=== PATIENT | female | born 1960 | race Caucasian/White ===

== ENCOUNTER 2018-05-07 15:06 | Emergency (ER) | payer BC ==
[2018-05-07 15:36] VITALS: BP 108/63
--- NOTE | 2018-05-07 16:00 | UC ---
Throat Pain/Nasal Gulshan HPI - HPI Summary HPI Summary: 2-3 weeks of intermittent sore throat and pain with swallowing. No documented fever. Feels tired. Has mild cough. Concerned about strep because she thought she saw a white spot on her right tonsil. - History of Current Complaint Chief Complaint: UCGeneralIllness Stated Complaint: ST Time Seen by Provider: 05/07/18 15:33 Hx Obtained From: Patient Onset/Duration: Gradual Onset, Lasting Weeks, Still Present Severity: Moderate Pain Intensity: 7 Pain Scale Used: 0-10 Numeric Cough: Nonproductive Associated Signs & Symptoms: Negative: Fever - Allergies/Home Medications Allergies/Adverse Reactions: Allergies Allergy/AdvReac Type Severity Reaction Status Date / Time No Known Allergies Allergy Verified 05/07/18 15:37 PMH/Surg Hx/FS Hx/Imm Hx Endocrine History: Hypothyroidism - Surgical History Surgical History: Yes Surgery Procedure, Year, and Place: foot - Family History Known Family History: Positive: None - Social History Alcohol Use: Daily Alcohol Amount: glass of wine Substance Use Type: None Smoking Status (MU): Never Smoked Tobacco - Immunization History Most Recent Influenza Vaccination: [id number] Review of Systems Constitutional: Fatigue ENT: Sore Throat Respiratory: Cough Cardiovascular: Negative Gastrointestinal: Negative All Other Systems Reviewed And Are Negative: Yes Physical Exam Triage Information Reviewed: Yes Appearance: Well-Appearing, No Pain Distress, Well-Nourished Vital Signs: Initial Vital Signs Temp 98.0 F 05/07/18 15:32 Pulse 76 05/07/18 15:32 Resp 17 05/07/18 15:32 BP 108/63 05/07/18 15:32 Pulse Ox 100 05/07/18 15:32 Laboratory Tests 05/07/18 15:36 Group A Strep Rapid Negative Vital Signs Reviewed: Yes Eyes: Positive: Conjunctiva Clear ENT: Positive: Hearing grossly normal, Pharynx normal, TMs normal, Other - RIGHT TONSIL WITH ULCER AND TONSIL STONE Neck: Positive: Supple, Nontender, No Lymphadenopathy Respiratory Exam: Normal Cardiovascular Exam: Normal Abdomen Description: Positive: Soft Musculoskeletal: Positive: No Edema Neurological: Positive: Alert Psychological: Positive: Age Appropriate Behavior Skin: Negative: rashes Throat Pain/Nasal Course/Dx - Course Course Of Treatment: TONSIL STONE REMOVED BY MD USING CURETTE. STREP TEST NEG. WILL COVER WITH ABX DUE TO PROLONGED ILLNESS BUT PT COUNSELED THAT STILL MAY BE VIRAL ILLNESS. - Differential Dx/Diagnosis Provider Diagnoses: 1. ACUTE PHARYNGITIS. 2. RIGHT TONSIL STONE Discharge - Sign-Out/Discharge Documenting (check all that apply): Patient Departure All imaging exams completed and their final reports reviewed: No Studies - Discharge Plan Condition: Stable Disposition: HOME Prescriptions: Amoxicillin PO (*) [Amoxicillin 500 MG CAP*] 500 mg PO Q12H #14 cap Patient Education Materials: Pharyngitis (ED) Referrals: Stefani Fall [Primary Care Provider] - If Needed Additional Instructions: RAPID STREP NEGATIVE. YOUR SYMPTOMS MAY BE VIRALLY MEDIATED BUT GIVEN THE LENGTH OF TIME YOU HAVE BEEN ILL WE WILL COVER YOU WITH ANTIBIOTICS. IF YOU START THE MEDICINE BE SURE TO TAKE IT FOR THE FULL COURSE. REST, HYDRATE, OTC MEDS NEEDED. SEEK FOLLOW-UP WITH YOUR PCP IF YOU ARE NOT IMPROVING OVER THE NEXT 1-2 WEEKS. What Causes Tonsil Stones? Your tonsils are filled with nooks and crannies where bacteria and other materials, including cells and mucous, can become trapped. When this happens, the debris can become concentrated in white formations that occur in the pockets. Tonsil stones, or tonsilloliths, are formed when this trapped debris hardens, or calcifies. This tends to happen most often in people who have chronic inflammation in their tonsils or repeated bouts of tonsillitis While many people have small tonsilloliths that develop in their tonsils, it is quite rare to have a large and solidified tonsil stone. What Are the Symptoms of Tonsil Stones? Many small tonsil stones do not cause any noticeable symptoms. Even when they are large, some tonsil stones are only discovered incidentally on X-rays or CT scans. Some larger tonsilloliths, however, may have multiple symptoms: -Bad breath. One of the prime indicators of a tonsil stone is exceedingly bad breath, or halitosis, that accompanies a tonsil infection. One study of patients with a form of chronic tonsillitis used a special test to see if volatile sulfur compounds were contained in the subjects' breath. The presence of these foul-smelling compounds provides evidence of bad breath. The researchers found that 75% of the people who had abnormally high concentrations of these compounds also had tonsil stones. Other researchers have suggested that tonsil stones be considered in situations when the cause of bad breath is in question. -Sore throat . When a tonsil stone and tonsillitis occur together, it can be difficult to determine whether the pain in your throat is caused by your infection or the tonsil stone. The presence of a tonsil stone itself, though, may cause you to feel pain or discomfort in the area where it is lodged. -White debris. Some tonsil stones are visible in the back of the throat as a lump of solid white material. This is not always the case. Often they are hidden in the folds of the tonsils. In these instances, they may only be detectable with the help of non-invasive scanning techniques, such as CT scans or magnetic resonance imaging -Difficulty swallowing. Depending on the location or size of the tonsil stone, it may be difficult or painful to swallow foods or liquids. -Ear pain . Tonsil stones can develop anywhere in the tonsil. Because of shared nerve pathways, they may cause a person to feel pain in the ear, even though the stone itself is not touching the ear. -Tonsil swelling. When collected debris hardens and a tonsil stone forms, inflammation from infection (if present) and the tonsil stone itself may cause a tonsil to swell or become larger. How Are Tonsil Stones Treated? The appropriate treatment for a tonsil stone depends on the size of the tonsillolith and its potential to cause discomfort or harm. Options include: No treatment. Many tonsil stones, especially ones that have no symptoms, require no special treatment. At-home removal. Some people choose to dislodge tonsil stones at home with the use of picks or swabs. Salt water gargles. Gargling with warm, salty water may help ease the discomfort of tonsillitis, which often accompanies tonsil stones. Antibiotics. Various antibiotics can be used to treat tonsil stones. While they may be helpful for some people, they cannot correct the basic problem that is causing tonsilloliths. Also, antibiotics can have side effects. Surgical removal. When tonsil stones are exceedingly large and symptomatic, it may be necessary for a surgeon to remove them. In certain instances, a doctor will be able to perform this relatively simple procedure using a local numbing agent. Then the patient will not need general anesthesia. - Billing Disposition and Condition Condition: STABLE Disposition: Home
== END 2018-05-07 16:19 | disposition home or self-care (01) ==
LOC: UCCORT 15:06
DX: J02.9 Acute pharyngitis, unspecified (principal); J35.8 Other chronic diseases of tonsils and adenoids
CPT/HCPCS: 87651; 99212; G0463

== ENCOUNTER 2018-08-14 15:46 | Emergency (ER) | payer BC ==
[2018-08-14 16:38] VITALS: BP 127/70
--- NOTE | 2018-08-14 17:00 | UC ---
Abdominal Pain Female HPI - HPI Summary HPI Summary: [place] and developed dysuria, frequency and urgency. Pt states sx started 2 daysa go. Pt had hematuria and urine was cloudy. Pt states started Augmentin she had left over. Has taken 4 doses. pt states have improved, not resolved. mild back pain. No n/v. No fever, chills. NO vaginal discharge, odor Pt's medications reviewed this visit Not immunocompromised. - History of Current Complaint Chief Complaint: UCGU Stated Complaint: URINARY Time Seen by Provider: 08/14/18 16:46 Hx Obtained From: Patient ?: No Onset/Duration: Gradual Onset Pain Intensity: 5 Allergies/Adverse Reactions: Allergies Allergy/AdvReac Type Severity Reaction Status Date / Time No Known Allergies Allergy Verified 08/14/18 16:38 PMH/Surg Hx/FS Hx/Imm Hx Previously Healthy: Yes - Surgical History Surgical History: Yes Surgery Procedure, Year, and Place: Right foot-Bunionectomy - Family History Known Family History: Positive: Non-Contributory - Social History Lives: With Family Alcohol Use: Daily Alcohol Amount: Glass of wine Substance Use Type: None Smoking Status (MU): Former Smoker Amount Used/How Often: smoked on and off When Did the Patient Quit Smoking/Using Tobacco: 1999 - Immunization History Most Recent Influenza Vaccination: [id number] Review of Systems All Other Systems Reviewed And Are Negative: Yes Constitutional: Positive: Negative Skin: Positive: Negative Genitourinary: Positive: Dysuria, Hematuria, Frequency, Urgency. Negative: Vaginal/Penile Burning, Vaginal/Penile Discharge Physical Exam - Summary Physical Exam Summary: Vital Signs Reviewed: Yes A+Ox3, no distress Eyes: Conjunctiva Clear, DENIS. EOM intact and full ENT: Hearing grossly normal TM x 2 clear, mmoist, uvula midline, no exudate, no erythema Neck: Positive: Supple Respiratory: Positive: No respiratory distress, No accessory muscle use + CTA throughout no w/r Cardiovascular: RRR nl s1, s2 no m/r CBT <2 sec abd soft + BS nt/nd no guarding, no distension, no CVA Musculoskeletal Exam: GARCIA x 4 without difficulty Strength Intact, ROM Intact Neurological: Positive: Alert, + sensation throughout Psychological: Positive: Normal Response To Family Skin: Positive: no rash, no ecchymosis Triage Information Reviewed: Yes Vital Signs: Initial Vital Signs Temp 97.4 F 08/14/18 16:34 Pulse 75 08/14/18 16:34 Resp 16 08/14/18 16:34 BP 127/70 08/14/18 16:34 Pulse Ox 100 08/14/18 16:34 Abd Pain Female Course/Dx - Course Course Of Treatment: Pt with urinary sx: hematuriia, frequency, urgency. sx improved after 2 days on Augmentin. VSS. exam non concerning. urine c/w infection. will start abx. culture. return precautions - Differential Dx/Diagnosis Provider Diagnosis: Dysuria Discharge - Sign-Out/Discharge Documenting (check all that apply): Patient Departure All imaging exams completed and their final reports reviewed: No Studies - Discharge Plan Condition: Stable Disposition: HOME Prescriptions: Amoxicillin/Clavulanate TAB* [Augmentin TAB 875*] 875 mg PO BID #16 tab Patient Education Materials: Urinary Tract Infection in Women (ED) Referrals: Stefani Fall [Primary Care Provider] - Additional Instructions: - stay well hydrated - drink plenty of non-alcoholic, non caffinated beverages - your urine will be further tested - if you require any changes to your treatment, we will contact you - this usually take 2 days - Contact your primary doctor to arrange a follow-up appointment next week. Contact your doctor or return with questions or concerns - Take your antibiotics exactly as prescribed until gone - Okay to alternate ibuprofen (Advil, Motrin) and Tylenol every 3 hours for pain. Take with food - Discuss with your surgeon and anesthesiologist tomorrow your current treatment - inquire about using ibuprofen pre-operatively - Call your doctor or go to the emergency department with questions or concerns - increased pain, vomiting, fevers, rash or ANY other questions - Billing Disposition and Condition Condition: STABLE Disposition: Home
== END 2018-08-14 17:24 | disposition home or self-care (01) ==
LOC: UCCORT 15:46
DX: R30.0 Dysuria (principal); R31.9 Hematuria, unspecified; Z87.891 Personal history of nicotine dependence
CPT/HCPCS: 81003; 87077; 87086; 87186; 99212; G0463

== ENCOUNTER 2018-08-18 08:42 | Day surgery (SDC) | payer BC ==
[~2018-08-18 08:42] MED LIST: Buffered Lidocaine 1% SYRIN* 1 ML/SYRINGE INTRADERM ONE; Bupivacaine 0.5%* 50 ML VIAL ONE; Lactated Ringers 1000 ML Bag* 1,000 ML IV SCH; Sodium Citrate/Citric Acid* 15 ML UDC PO ONE
[2018-08-18] MEDS ORDERED: Sodium Citrate/Citric Acid* 15 ML UDC ONE (08:53)
[2018-08-18] MEDS ORDERED: ceFAZolin 2 GM PREMIX in ORs 2 GM/50 ML BAG IVPB ONE (08:54)
[2018-08-18] MEDS ORDERED: Lidocaine 2% PF* 10 ML AMP ONE (09:06)
[2018-08-18] MEDS ORDERED: Buffered Lidocaine 1% SYRIN* 1 ML/SYRINGE INTRADERM ONE (09:26)
[2018-08-18] MEDS ORDERED: Naloxone* 0.4 MG/ML 1 ML VIAL IV PRN (09:29)
[2018-08-18] MEDS ORDERED: Midazolam* 1 MG/ML 5 ML VIAL (5 MG) ONE (09:43)
[2018-08-18] MEDS ORDERED: fentaNYL* 50 MCG/ML 2 ML VIAL (100 MCG VIAL) ONE (09:50)
[2018-08-18] MEDS ORDERED: Midazolam* 1 MG/ML 2 ML VIAL (2 MG) ONE (09:54)
[2018-08-18] MEDS ORDERED: Lidocaine 2% PF * 5 ML VIAL ONE (10:10)
[2018-08-18] MEDS ORDERED: Propofol* 10 MG/ML 20 ML BTL ONE (10:10)
[2018-08-18] MEDS ORDERED: oxyCODONE TAB* 5 MG TAB ONE ×2 (11:32→12:13)
[2018-08-18 12:18] VITALS: BP 155/85
--- NOTE | 2018-08-18 15:31 | OP ---
DATE OF OPERATION: 08/18/18 - [facility] DATE OF : 56 SURGEON: Eduardo Mendez MD SNUFF BLENDER: Che Guillermo PA-C PRE-OP DIAGNOSIS: Left hallux valgus deformity POST-OP DIAGNOSIS: Left hallux valgus deformity OPERATIVE PROCEDURE: Left hallux valgus repair with first second metatarsal TightRope. DESCRIPTION OF PROCEDURE: The patient was taken to the operating room where a longitudinal incision was made in the web space dorsally between the first and second metatarsal. We incised the sesamoid ligament and incised the dorsal capsule. We then made a longitudinal incision over the medial eminence exposing dorsal and plantar. We split the longitudinal aspect of the medial capsule to allow visualization of the medial eminence, which was removed with a micro sagittal saw. We then passed a TightRope pin from the first metatarsal to the second metatarsal and then the FiberWire. This was tied over a button at the first metatarsal with the first and second metatarsal closely apposed. We then advanced the capsular repair with a 0-Vicryl suture, subcutaneous closure with 3 -0 Vicryl and nylon and a compression dressing applied. [id number]/[facility] #: [id number] [facility]'S HOSPITALRachel
== END 2018-08-18 12:37 | disposition home or self-care (01) ==
LOC: OR 08:42
PROVIDERS: ATTEND Orthopaedic Surgery
DX: M20.12 Hallux valgus (acquired), left foot (principal); E03.9 Hypothyroidism, unspecified
CPT/HCPCS: 76000; A9270-GY; C1713; J0690; J2001; J2250; J2704; J3010